=== PATIENT | female | born 1965 | race Caucasian/White ===

== ENCOUNTER → 2025-06-09 | Outpatient (CLI) | payer MEDICAID, SELFPAY ==
--- NOTE | 2025-06-09 15:30 | XR_ITS ---
Examination: Ultrasound of the kidneys and retroperitoneum, complete Technique: Multiple high resolution grayscale images of the retroperitoneum obtained, including kidneys and bladder. 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 The patient has had frequent kidney infections. Comparison study, renal ultrasound on 04/29/2024. Exam date and time: 06/09/2025 at 3:32 p.m. FINDINGS: The right kidney is enlarged, its length is 16.6 cm, virtually identical to that measurement on the previous renal ultrasound. Its AP diameter is 72 mm, compared with a measurement of 79 mm on the previous ultrasound. There are innumerable small and medium sized and large thin-walled fluid filled cysts involving the entire right kidney. There is no evidence of any hydronephrosis. One of the largest cysts measures 3.1 x 4.4 cm, this measured 3.7 x 4.7 cm in diameter on the previous study. The urinary bladder is significantly distended initially, with the prevoid bladder volume measuring 463 mL there is a normal color flow ureteral jet entering the urinary bladder from the right distal ureter indicating ureteral patency. The post void bladder volume measures essentially 6 cc. There is only a small amount of residual urine in the bladder on the post void images. IMPRESSION: 1. 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 The right ureter is patent. Prevoid bladder volume is 464 cc, the post void bladder volume is 6 cc
== END | disposition home or self-care (01) ==
PROVIDERS: PCP Family Medicine; Referring Provider Internal Medicine; Visit Provider Internal Medicine
DX: Z98.890 Other specified postprocedural states (principal); N28.81 Hypertrophy of kidney
CPT/HCPCS: 76770